=== PATIENT | male | born 1985 | race Caucasian/White ===

== ENCOUNTER 2022-01-05 12:40 | Outpatient (REF) | payer OTHER, SELFPAY ==
[2022-01-05 13:39] LABS: MANUAL DIFF FLAG NO
[2022-01-05 13:53] LABS: Basophils Percent Auto 0.3 % (0-2); Eosinophils Absolute Auto 0.2 X10*3/uL (0.0-0.4); Eosinophils Percent Auto 2.1 % (0-4); Hematocrit 42.9 % (42.0-52.0); Hemoglobin 14.6 g/dl (14.0-18.0); Imm Gran Abs Auto 0.03 X10*3/uL (0.00-0.03); Imm Gran Pct Auto 0.3 % (0.0-0.4); Lymphocytes Percent Auto 10.9 % (20-40); Mean Corpuscular Hemoglobin 28.9 pg (27.0-33.0); Mean Corpuscular Volume 84.8 fL (80.0-98.0); Mean Platelet Volume 9.3 fL (9.4-12.4); Monocytes Absolute Auto 0.4 X10*3/uL (0.1-1.2); Monocytes Percent Auto 4.2 % (2-11); Neutrophils Absolute Auto 7.2 x10*3/uL (2.0-8.3); Neutrophils Percent Auto 82.2 % (45-73); Platelet Count 392 X10*3/uL (160-400); Red Blood Count 5.06 X10*6/uL (4.60-5.80); Red Cell Distribution Width 12.6 % (11.0-16.0); White Blood Count 8.8 X10*3/uL (4.8-10.8)
[2022-01-05 14:11] LABS: Alanine Aminotransferase 14 U/L (0-40); Albumin Level 3.6 g/dL (3.5-5.0); Alkaline Phosphatase 74 U/L (39-117); Anion Gap 12 (12-20); Aspartate Amino Transferase 13 U/L (5-37); Bilirubin Total 0.6 mg/dL (0.0-1.0); Blood Urea Nitrogen 11 mg/dL (9-16); C Reactive Protein 1.42 mg/dL (< or = 0.50); Calcium 9.1 mg/dL (8.4-10.2); Carbon Dioxide 24 mmol/L (22-29); Chloride 107 mmol/L (96-108); Estimated Glomerular Filt Rate > 60; Glucose Random 99 mg/dL (60-115); Potassium 3.9 mmol/L (3.3-5.1); Sodium 139 mmol/L (135-145); Total Protein 6.7 g/dL (6.5-8.0)
[2022-01-05 14:33] LABS: TSH reflex Free T4 3.89 uIU/mL (0.32-4.0); Vitamin D 25-OH Total 15.9 ng/mL (>30)
[2022-01-05 14:35] LABS: Erythrocyte Sedimentation Rate 20 MM/HR (0-15)
[2022-01-05 14:58] LABS: Ferritin 57 ng/mL (20-250)
[2022-01-05 15:02] LABS: Folate 13.7 ng/mL (> or = 4.0); Vitamin B12 361 pg/mL (200-900)
[2022-01-07 22:01] LABS: TS Negative Control Passed; TS Panel A 1; TS Panel B 0; TS Positive Control Passed; TSpotTB Negative (Negative)
[2022-01-09 17:31] LABS: Vitamin C 0.7 mg/dL (0.2-2.1)
== END 2022-01-05 12:41 | disposition home or self-care (01) ==
LOC: HO.LAB 12:40
PROVIDERS: PCP Nurse Practitioner Family; Visit Provider Internal Medicine Gastroenterology
DX: Z11.1 Encounter for screening for respiratory tuberculosis (principal); K50.90 Crohn's disease, unspecified, without complications; K75.81 Nonalcoholic steatohepatitis (NASH)
CPT/HCPCS: 36415; 80053; 82180; 82306; 82607; 82728; 82746; 84443; 85025; 85652; 86140; 86481

== ENCOUNTER 2022-01-23 14:02 | Outpatient (REF) | payer OTHER, SELFPAY ==
--- NOTE | ~2022-01-23 | CT_ITS ---
EXAMINATION: CT ENTEROGRAPHY ABDOMEN AND PELVIS WITH CONTRAST CLINICAL INFORMATION: Periumbilical pain COMPARISON: None TECHNIQUE: Study performed with oral VoLumen (1350 mL) and 480 mL of water to distend the abdomen. The patient was injected with 85 mL Omnipaque 350 intravenous contrast which was administered without adverse effect. Coronal and sagittal reformatted images were obtained at the technologist's workstation. This CT examination was performed using dose optimization techniques as appropriate, variously including the following: *Automated exposure control *Adjustment of mA and/or kV according to patient size (this includes techniques or standardized protocols for targeted exams where dose is matched to indication/reason for exam; i.e. extremities or head) *Use of iterative reconstruction technique DLP: 373 mGy-cm FINDINGS: GASTROINTESTINAL FINDINGS: Stomach: Well-distended and normal in appearance. Small and large intestine: There are postsurgical changes following right colectomy. There are abnormal thick walled loops of distal small bowel just proximal to the enterocolic anastomosis in the right abdomen. This demonstrates increased mucosal enhancement. There is adjacent prominence of the vasa recta and enlarged mesenteric lymph nodes. Largest lymph nodes measure 1.5 to 1.8 cm. There is question of second area of more proximal small bowel involvement versus changes due to underdistention for example axial image 66 series 7. Small left bowel is otherwise unremarkable. The rectum is unremarkable. No abdominal abscess or fistulous tract demonstrated. There is a supraumbilical or periumbilical hernia containing fat. ABDOMINAL AND PELVIC CT FINDINGS: Liver, gallbladder, biliary tract: Unremarkable Pancreas: Unremarkable Spleen: Slightly prominent measuring 14 cm in AP dimension. Adrenal glands and kidneys: Normal adrenal glands. Slight anterior orientation of the right renal pelvis. The kidneys are otherwise normal. Ureters and bladder: Bladder not optimally distended. Normal prostate gland. Lymphovascular structures: Enlarged small bowel mesentery lymph nodes. Bones: Mild degenerative changes of the spine. Question mild increased sclerosis along the iliac side of the sacroiliac joints. Lung bases: Unremarkable CT/CT enterography IMPRESSION: Postsurgical changes following right colectomy. Abnormal loop of small bowel with wall thickening and enhancement proximal to the enterocolic anastomosis. This demonstrates prominent vasa recta and enlarged small bowel mesentery lymph nodes. Appearance is suggestive of active inflammatory bowel disease. Comparison with old outside imaging to see if mesenteric lymph node enlargement is new or increased is recommended. Question of a second area of involvement of the more proximal small bowel versus changes due to underdistention.
[2022-01-23] MEDS: iohexoL 350 MG/ML 100 ML INFUS..BTL IV (15:43)
[2022-01-23] MEDS: Sorbitol/Mannit/Xanth Imaging 500 ML LIQUID 1500 ML PO (15:45)
== END 2022-01-23 14:03 | disposition home or self-care (01) ==
LOC: HO.US 14:02
PROVIDERS: Visit Provider Internal Medicine Gastroenterology
DX: K50.90 Crohn's disease, unspecified, without complications (principal); R10.33 Periumbilical pain; Z90.49 Acquired absence of other specified parts of digestive tract
CPT/HCPCS: 74177; Q9967

== ENCOUNTER 2022-02-22 07:29 | Outpatient (REF) | payer OTHER, SELFPAY | END 2022-02-22 07:30 | disposition home or self-care (01) | LOC: HO.MDS 07:29 | PROVIDERS: PCP Nurse Practitioner Family; Visit Provider Internal Medicine Gastroenterology | DX: K50.90 Crohn's disease, unspecified, without complications (principal) | CPT/HCPCS: 96365; J3380 ==

== ENCOUNTER 2022-03-09 07:41 | Outpatient (REF) | payer OTHER, SELFPAY | END 2022-03-09 07:42 | disposition home or self-care (01) | LOC: HO.MDS 07:41 | PROVIDERS: PCP Nurse Practitioner Family; Visit Provider Internal Medicine Gastroenterology | DX: K50.90 Crohn's disease, unspecified, without complications (principal) | CPT/HCPCS: 96365; J3380 ==

== ENCOUNTER 2022-04-05 07:39 | Outpatient (REF) | payer OTHER, SELFPAY | END 2022-04-05 07:40 | disposition home or self-care (01) | LOC: HO.MDS 07:39 | PROVIDERS: PCP Nurse Practitioner Family; Visit Provider Internal Medicine Gastroenterology | DX: K50.90 Crohn's disease, unspecified, without complications (principal) | CPT/HCPCS: 96365; J3380 ==

== ENCOUNTER 2022-05-31 13:29 | Outpatient (REF) | payer OTHER, SELFPAY | END 2022-05-31 13:30 | disposition home or self-care (01) | LOC: HO.MDS 13:29 | PROVIDERS: PCP Nurse Practitioner Family; Visit Provider Internal Medicine Gastroenterology | DX: K50.90 Crohn's disease, unspecified, without complications (principal) | CPT/HCPCS: 96365; J3380 ==

== ENCOUNTER 2022-07-27 07:35 | Outpatient (REF) | payer OTHER, SELFPAY | END 2022-07-27 07:36 | disposition home or self-care (01) | LOC: HO.MDS 07:35 | PROVIDERS: Visit Provider Internal Medicine Gastroenterology | DX: K50.90 Crohn's disease, unspecified, without complications (principal) | CPT/HCPCS: 96365; J3380 ==

== ENCOUNTER 2022-09-24 13:31 | Outpatient (REF) | payer OTHER, SELFPAY ==
[2022-09-24 13:47] LABS: MANUAL DIFF FLAG NO
[2022-09-24 15:01] LABS: Basophils Percent Auto 0.5 % (0-2); Eosinophils Absolute Auto 0.2 X10*3/uL (0.0-0.4); Hematocrit 41.4 % (42.0-52.0); Hemoglobin 14.3 g/dl (14.0-18.0); Imm Gran Abs Auto 0.04 X10*3/uL (0.00-0.03); Imm Gran Pct Auto 0.5 % (0.0-0.4); Lymphocytes Absolute Auto 1.1 X10*3/uL (1.2-4.9); Lymphocytes Percent Auto 12.7 % (20-40); Mean Corpuscular HGB Conc 34.5 g/dl (31.0-36.0); Mean Corpuscular Hemoglobin 29.7 pg (27.0-33.0); Mean Corpuscular Volume 85.9 fL (80.0-98.0); Mean Platelet Volume 10.2 fL (9.4-12.4); Monocytes Absolute Auto 0.4 X10*3/uL (0.1-1.2); Monocytes Percent Auto 4.6 % (2-11); Neutrophils Absolute Auto 6.7 x10*3/uL (2.0-8.3); Neutrophils Percent Auto 79.7 % (45-73); Platelet Count 363 X10*3/uL (160-400); Red Blood Count 4.82 X10*6/uL (4.60-5.80); Red Cell Distribution Width 13.1 % (11.0-16.0); White Blood Count 8.5 X10*3/uL (4.8-10.8)
[2022-09-24 15:49] LABS: Erythrocyte Sedimentation Rate 14 MM/HR (0-15)
[2022-09-24 16:12] LABS: Alanine Aminotransferase 14 U/L (0-40); Albumin Level 3.5 g/dL (3.5-5.0); Alkaline Phosphatase 75 U/L (39-117); Anion Gap 10 (12-20); Aspartate Amino Transferase 14 U/L (5-37); Bilirubin Total 0.6 mg/dL (0.0-1.0); Blood Urea Nitrogen 8 mg/dL (9-16); C Reactive Protein 0.79 mg/dL (< or = 0.50); Calcium 8.8 mg/dL (8.4-10.2); Carbon Dioxide 27 mmol/L (22-29); Chloride 104 mmol/L (96-108); Estimated Glomerular Filt Rate > 60; Ferritin 43 ng/mL (20-250); Glucose Random 78 mg/dL (60-115); Iron 86 mcg/dL (45-160); Percent Iron Saturation 31 % (15-50); Potassium 4.1 mmol/L (3.3-5.1); Sodium 137 mmol/L (135-145); Total Iron Binding Capacity 277 mcg/dL (228-428); Total Protein 6.4 g/dL (6.5-8.0); Unsaturated Iron Binding 191 ug/dL
[2022-09-24 16:25] LABS: Folate 13.2 ng/mL (> or = 4.0); Vitamin B12 368 pg/mL (200-900)
== END 2022-09-24 13:32 | disposition home or self-care (01) ==
LOC: HO.LAB 13:31
PROVIDERS: Visit Provider Internal Medicine Gastroenterology
DX: K50.90 Crohn's disease, unspecified, without complications (principal); K42.9 Umbilical hernia without obstruction or gangrene; K75.81 Nonalcoholic steatohepatitis (NASH); K52.9 Noninfective gastroenteritis and colitis, unspecified
CPT/HCPCS: 36415; 80053; 80280; 82542; 82607; 82728; 82746; 83540; 85025; 85652; 86140

== ENCOUNTER 2022-09-28 07:34 | Outpatient (REF) | payer OTHER, SELFPAY | END 2022-09-28 07:35 | disposition home or self-care (01) | LOC: HO.MDS 07:34 | PROVIDERS: Visit Provider Internal Medicine Gastroenterology | DX: K50.90 Crohn's disease, unspecified, without complications (principal) | CPT/HCPCS: 96365; J3380 ==

== ENCOUNTER → 2022-11-02 09:58 | Outpatient (BNVA) | payer OTHER, SELFPAY | PROVIDERS: PCP Nurse Practitioner Family; Visit Provider Surgery | DX: Z13.89 Encounter for screening for other disorder (principal) ==

== ENCOUNTER 2022-11-09 07:28 | Outpatient (REF) | payer OTHER, SELFPAY | END 2022-11-09 07:29 | disposition home or self-care (01) | LOC: HO.MDS 07:28 | PROVIDERS: Visit Provider Internal Medicine Gastroenterology | DX: K50.90 Crohn's disease, unspecified, without complications (principal) | CPT/HCPCS: 96365; J3380 ==

== ENCOUNTER → 2022-11-19 11:04 | Outpatient (BNVA) | payer SELFPAY | PROVIDERS: PCP Physician Assistant; Visit Provider Physician Assistant Medical | DX: Z02.79 Encounter for issue of other medical certificate (principal) ==

== ENCOUNTER 2022-11-21 05:55 | Day surgery (SDC) | payer OTHER, SELFPAY ==
[2022-11-15 09:17] VITALS: BMI 25.4
--- NOTE | 2022-11-20 08:32 | HO.ANESPROP2 ---
Documented by User: Pushpa Hernandez NP 11/20/22 08:33 HPI - Anesthesia Eval Consult details Narrative: 37yo M for Hernia Repair Incisional,with poss mesh PMFSH Active Problems Active Problems: All Active Problems (Updated 11/02/22 @ 10:26 by Graham Kapoor MD) Cellulitis (Acute) Umbilical hernia (Acute) Incisional hernia, incarcerated (Acute) Crohn's disease (Acute) Past Medical History Medical History (Updated 11/02/22 @ 10:26 by Graham Kapoor MD) Crohn's disease Family History Family History Father Diabetes Surgical History Surgical History (Updated 11/15/22 @ 09:01 by Shira Fernandez RN) History of intestinal surgery History of surgery on wrist Hx of colonoscopy Social History Social History Alcohol intake: current Alcohol intake frequency: holidays/special occasions only Patient Tobacco Use Status: Never used Tobacco Use of substances other than those prescribed or required for medical reasons: No Advance Directives: No Advance Directives Information Provided: Yes Meds Allergies Allergy/AdvReac Type Severity Reaction Status Date / Time No Known Allergies Allergy Verified 11/02/22 10:04 Home Medications Medication Instructions Recorded Confirmed Last Taken Type vedolizumab 300 mg intravenous 300 mg IV Q6W 09/24/22 11/21/22 Unknown History solution (Entyvio) Exam Exam Date and Time: November 20, 2022 0832 Height,Weight and Vital Signs: Height 5 ft 8 in Weight 75.75 kg Pertinent Lab Results Pertinent Lab Results: Laboratory Tests 09/24/22 09/24/22 13:18 13:18 WBC 8.5 Hgb 14.3 Hct 41.4 L Plt Count 363 Sodium 137 Potassium 4.1 Chloride 104 Carbon Dioxide 27 BUN 8 L Creatinine 0.95 Assessment and Plan Assessment Anesthesia Assessment: Chart Reviewed Documented by User: Jeanette Bauer MD 11/21/22 07:29 [facility] Past Medical History Medical History (Updated 11/02/22 @ 10:26 by Graham Kapoor MD) Crohn's disease Family History Family History Father Diabetes Family history of problems with anesthesia: No Surgical History Surgical History (Updated 11/15/22 @ 09:01 by Shira Fernandez RN) History of intestinal surgery History of surgery on wrist Hx of colonoscopy History of Problems with Anesthesia: No Social History Social History Alcohol intake: current Alcohol intake frequency: holidays/special occasions only Patient Tobacco Use Status: Never used Tobacco Use of substances other than those prescribed or required for medical reasons: No Advance Directives: No Advance Directives Information Provided: Yes Meds Allergies Allergy/AdvReac Type Severity Reaction Status Date / Time No Known Allergies Allergy Verified 11/02/22 10:04 Home Medications Medication Instructions Recorded Confirmed Last Taken Type vedolizumab 300 mg intravenous 300 mg IV Q6W 09/24/22 11/21/22 Unknown History solution (Entyvio) Exam Airway Mallampati Class: II TM Dist: >3cm Heart: rrr Lungs: cta Assessment and Plan Assessment Anesthesia Assessment: Anesthesia Plan Discussed and Chart Reviewed Final Anesthetic Review Family History of Problems with Anesthesia: No History of Problems with Anesthesia: No NPO: Yes ASA Class: III Final Preanesthetic Review: No Changes in Pt Med Stat, Meds/Allgs Chart Reviewed, Consent Obtained/Reviewed and Anes Risks/Benef Reviewed Patient Risk: Intermediate Procedure Risk: Intermediate Anesthetic Plan Anesthetic Plan: GA and Agree w/ Assess. and Plan Disposition: Standard PACU
[2022-11-21 06:10] VITALS: BMI 25.0
[2022-11-21 06:13] VITALS: BP 110/76; PULSE 82; RESP 18; TEMP 36.3; O2SAT 95; BMI 25.0
[2022-11-21] MEDS: Lactated Ringers 1,000 ML 100 ML IVCONT (06:30)
--- NOTE | 2022-11-21 07:40 | MHC.SHP ---
Pre-Procedural Eval Section A Date of Service: 11/21/22 The patient is an INPATIENT: No Changes since office visit: Yes Patient answered all questions; No Cold of Flu in the past 2 weeks, No New Medical Problems and No Changes in Medication The History & Physical has been completed within 30 days and I have reviewed it.: Yes Section B Chief Complaint: Incisional hernia with obstruction, Allergies: Allergies Allergy/AdvReac Type Severity Reaction Status Date / Time No Known Allergies Allergy Verified 11/02/22 10:04 Plan Diagnosis/Plan: Unchanged I have reviewed the history and physical and performed a pertinent physical examination on my patient. No changes have occurred unless specified. Time Spent With Patient Time: Total time managing care of this patient today ____ minutes.
--- NOTE | 2022-11-21 08:09 | P.OP_ITS ---
Operative Note Operative Note Date of Service: 11/21/22 Narrative: Preoperative diagnosis: incisional hernia ( 3 cm, incarcerated) Postoperative diagnosis: same Procedure: repair of incisional hernia Surgeon: Graham Kapoor MD Broadcast Operations Engineer: Latosha Romeo PA-C Anesthesia: general LMA Indications for procedure: 37-year-old male patient with a previous history of Crohn's disease status post bowel resection through a periumbilical incision. Patient noted a lump just above the umbilicus over the previous incision which has gradually increased in size and is causing occasional discomfort. CT abdomen pelvis indicates a 3 cm incisional hernia at this location. Operative findings: Incisional hernia repaired with a 4.6 cm Ventralex mesh Specimen: none Estimated blood loss: less than 1 mL Complications: none Procedure details: patient was brought to the OR placed in a supine position. After administering general anesthesia the patient's abdomen was prepped with ChloraPrep and draped in a sterile fashion. A surgical time-out was called the consent confirmed. Patient received preoperative antibiotics and Venodyne boots were in place. Local anesthesia consisting of 0.5% Sensorcaine with epinephrine was then infiltrated in the midline directly over the hernia. Incision was then created with a scalpel carried out through subcutaneous tissue down to the hernia sac. The hernia sac was then dissected circumferentially down to the fascial defect. Fascial defect was opened slightly to allow return of the incarcerated contents into the preperitoneal space. An open Ray-Susie was then placed into the preperitoneal space to further define the preperitoneal space. Further dissection was performed using electrocautery. A small Ventralex mesh was then obtained. This was then deployed into the preperitoneal space and secured to the fascia using 1 Tycron sutures at the margins and the fascia was closed over the mesh using 1 Tycron sutures. Before the fascia was completely closed 5 mL of Zenrelef was infiltrated below the fascia. Fascia was then compl etely closed. Wounds were irrigated with saline solution and suctioned dry. Subcutaneous tissue and dermis were then reapproximated using interrupted 3-0 Polysorb sutures. Skin was closed using a running subcuticular 4-0 Polysorb suture. Steri-Strips, 2 x 2 gauze and Tegaderm then applied. The patient tolerated the procedure well. Sponge, instrument, and needle counts reported as correct. The patient was transferred to PACU in stable condition.
[2022-11-21 08:36] VITALS: BP 112/73; PULSE 80; RESP 16; TEMP 37.1; O2SAT 100
[2022-11-21 08:41] VITALS: BP 107/69; PULSE 77; RESP 16; O2SAT 96
[2022-11-21 08:46] VITALS: BP 105/64; PULSE 85; RESP 16; O2SAT 96
[2022-11-21 08:51] VITALS: BP 106/65; PULSE 86; RESP 16; TEMP 37; O2SAT 95
[2022-11-21 09:06] VITALS: BP 108/70; PULSE 90; RESP 16; O2SAT 96
--- NOTE | 2022-11-21 09:53 | PC.NURSE ---
PATIENT PALE WITH SOME NAUSEA. PATIENT GIVEN COOL CLOTH, MUFFIN AND GINERALE. PT STATED FEELING BETTER AFTER APPROX [address] WALLACE RE-ASSESSED WITH NO NEW ORDERS AT THIS TIME. MESSAGE TO DR. GONSALEZ REQUESTING A PRESCRIPTION FOR AN ANTIEMETIC.
== END 2022-11-21 10:00 ==
LOC: HO.SSS 05:56
PROVIDERS: PCP Physician Assistant; Visit Provider Surgery
PROC: (CPT 49594; principal; 2022-11-21 07:30)
DX: K43.0 Incisional hernia with obstruction, without gangrene (principal); K50.90 Crohn's disease, unspecified, without complications; Z90.49 Acquired absence of other specified parts of digestive tract; Z79.899 Other long term (current) drug therapy
CPT/HCPCS: 49594; C1781; C9088; J0131; J0690; J1100; J1170; J2370; J2405; J2795; J3010

== ENCOUNTER → 2022-12-06 14:40 | Outpatient (BNVA) | payer OTHER, SELFPAY | PROVIDERS: PCP Physician Assistant; Visit Provider Surgery | DX: Z13.89 Encounter for screening for other disorder (principal) ==

== ENCOUNTER 2022-12-21 07:33 | Outpatient (REF) | payer OTHER, SELFPAY | END 2022-12-21 07:34 | disposition home or self-care (01) | LOC: HO.MDS 07:33 | PROVIDERS: Visit Provider Internal Medicine Gastroenterology | DX: K50.90 Crohn's disease, unspecified, without complications (principal) | CPT/HCPCS: 96365; J3380 ==

== ENCOUNTER → 2023-01-03 10:12 | Outpatient (BNVA) | payer OTHER, SELFPAY | PROVIDERS: PCP Physician Assistant; Visit Provider Surgery | DX: Z13.89 Encounter for screening for other disorder (principal) ==

== ENCOUNTER 2023-01-14 11:15 | Outpatient (REF) | payer OTHER, SELFPAY ==
[2023-01-14 11:56] LABS: MANUAL DIFF FLAG NO
[2023-01-14 12:14] LABS: Basophils Percent Auto 0.4 % (0-2); Eosinophils Absolute Auto 0.2 X10*3/uL (0.0-0.4); Eosinophils Percent Auto 2.9 % (0-4); Hemoglobin 15.3 g/dl (14.0-18.0); Imm Gran Abs Auto 0.02 X10*3/uL (0.00-0.03); Imm Gran Pct Auto 0.3 % (0.0-0.4); Lymphocytes Absolute Auto 1.2 X10*3/uL (1.2-4.9); Lymphocytes Percent Auto 14.5 % (20-40); Mean Corpuscular Hemoglobin 28.3 pg (27.0-33.0); Mean Corpuscular Volume 83.2 fL (80.0-98.0); Mean Platelet Volume 9.5 fL (9.4-12.4); Monocytes Absolute Auto 0.4 X10*3/uL (0.1-1.2); Monocytes Percent Auto 4.4 % (2-11); Neutrophils Absolute Auto 6.2 x10*3/uL (2.0-8.3); Neutrophils Percent Auto 77.5 % (45-73); Platelet Count 405 X10*3/uL (160-400); Red Blood Count 5.41 X10*6/uL (4.60-5.80)
[2023-01-14 13:06] LABS: Alanine Aminotransferase 22 U/L (0-40); Albumin Level 3.9 g/dL (3.5-5.0); Alkaline Phosphatase 77 U/L (39-117); Anion Gap 13 (12-20); Aspartate Amino Transferase 17 U/L (5-37); Bilirubin Total 0.7 mg/dL (0.0-1.0); Blood Urea Nitrogen 9 mg/dL (9-16); Calcium 9.7 mg/dL (8.4-10.2); Carbon Dioxide 30 mmol/L (22-29); Chloride 102 mmol/L (96-108); Estimated Glomerular Filt Rate > 60; Glucose Random 89 mg/dL (60-115); Potassium 4.6 mmol/L (3.3-5.1); Sodium 140 mmol/L (135-145); Total Protein 7.2 g/dL (6.5-8.0)
[2023-01-14 13:23] LABS: Ferritin 37 ng/mL (20-250); Folate 11.6 ng/mL (> or = 4.0); Vitamin B12 357 pg/mL (200-900)
[2023-01-17 11:39] LABS: TS Negative Control Passed; TS Panel A 0; TS Panel B 0; TS Positive Control Passed; TSpotTB Negative (Negative)
== END 2023-01-14 11:16 | disposition home or self-care (01) ==
LOC: HO.LAB 11:15
PROVIDERS: PCP Physician Assistant; Visit Provider Internal Medicine Gastroenterology
DX: K75.81 Nonalcoholic steatohepatitis (NASH) (principal); K50.90 Crohn's disease, unspecified, without complications
CPT/HCPCS: 36415; 80053; 82607; 82728; 82746; 85025; 86481

== ENCOUNTER 2023-02-04 07:33 | Outpatient (REF) | payer OTHER, SELFPAY | END 2023-02-04 07:34 | disposition home or self-care (01) | LOC: HO.MDS 07:33 | PROVIDERS: Visit Provider Internal Medicine Gastroenterology | DX: K50.90 Crohn's disease, unspecified, without complications (principal) | CPT/HCPCS: 96365; J3380 ==

== ENCOUNTER 2023-03-18 07:41 | Outpatient (REF) | payer OTHER, SELFPAY | END 2023-03-18 07:42 | disposition home or self-care (01) | LOC: HO.MDS 07:41 | PROVIDERS: Visit Provider Internal Medicine Gastroenterology | DX: K50.90 Crohn's disease, unspecified, without complications (principal) | CPT/HCPCS: 96365; J3380 ==

== ENCOUNTER 2023-05-07 07:40 | Outpatient (REF) | payer OTHER, SELFPAY | END 2023-05-07 07:41 | disposition home or self-care (01) | LOC: HO.MDS 07:40 | PROVIDERS: Visit Provider Internal Medicine Gastroenterology | DX: K50.90 Crohn's disease, unspecified, without complications (principal) | CPT/HCPCS: 96365; J3380 ==

== ENCOUNTER 2023-06-18 07:41 | Outpatient (REF) | payer OTHER, SELFPAY | END 2023-06-18 07:42 | disposition home or self-care (01) | LOC: HO.MDS 07:41 | PROVIDERS: Visit Provider Internal Medicine Gastroenterology | DX: K50.90 Crohn's disease, unspecified, without complications (principal) | CPT/HCPCS: 96365; J3380 ==

== ENCOUNTER 2023-07-30 07:43 | Outpatient (REF) | payer OTHER, SELFPAY | END 2023-07-30 07:44 | disposition home or self-care (01) | LOC: HO.MDS 07:43 | PROVIDERS: Visit Provider Internal Medicine Gastroenterology | DX: K50.90 Crohn's disease, unspecified, without complications (principal) | CPT/HCPCS: 96365; J3380 ==

== ENCOUNTER 2023-09-10 07:28 | Outpatient (REF) | payer OTHER, SELFPAY | END 2023-09-10 07:29 | disposition home or self-care (01) | LOC: HO.MDS 07:28 | PROVIDERS: Visit Provider Internal Medicine Gastroenterology | DX: K50.90 Crohn's disease, unspecified, without complications (principal) | CPT/HCPCS: 96365; J3380 ==

== ENCOUNTER 2023-10-24 07:43 | Outpatient (REF) | payer OTHER, SELFPAY | END 2023-10-24 07:44 | disposition home or self-care (01) | LOC: HO.MDS 07:43 | PROVIDERS: Visit Provider Internal Medicine Gastroenterology | DX: K50.90 Crohn's disease, unspecified, without complications (principal) | CPT/HCPCS: 96365; J3380 ==

== ENCOUNTER 2023-12-05 07:34 | Outpatient (REF) | payer OTHER, SELFPAY | END 2023-12-05 07:35 | disposition home or self-care (01) | LOC: HO.MDS 07:34 | PROVIDERS: Visit Provider Internal Medicine Gastroenterology | DX: K50.90 Crohn's disease, unspecified, without complications (principal) | CPT/HCPCS: 96365; J3380 ==

== ENCOUNTER 2023-12-23 09:25 | Outpatient (AMB) | payer OTHER, SELFPAY ==
--- NOTE | 2023-12-23 09:29 | A.OFFVIS_ITS ---
Intake Vital Signs 12/23/23 09:31 Height 5 ft 8 in Weight 176 lb 5.917 oz BMI 26.8 BP 111/79 Blood Pressure Location Lt brachial Position Sitting Pulse 71 Intake Visit Reasons: 8 month fu Intake Note: Joselito presents in the office as a 8 month follow up. CC: He states that he is not having any concerns today! 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 VITAL SIGNS:see workflow HEENT: Nonicteric sclerae, PERRLA, EOMI. Oropharynx clear. Moist mucous membranes. Conjunctivae appear well perfused. No thyroid mass. CHEST: Chest wall is nontender. HEART: Regular rate and rhythm without murmurs. LUNGS: Clear to auscultation bilaterally. ABDOMEN: Soft, positive bowel sounds, nontender, no organomegaly.no flank tenderness--small umbilical hernia SKIN: dry skin hands, small cut on finger NEUROLOGIC: Cranial nerves II-XII intact without motor/sensory deficit. A/P: 1/ Crohns, s/p bowel resection with acti ve inflammation on CTe, now on entyvio with breakthru sx at 8 weeks or so so was changed to q 6 week dosing with better symptom control but still has breakthru at 4-5 weeks now PLAN: 1/ Cont with entyvio but change to q 4 w eeks and get entyvio level before next dose 2/ check labs incl TB spot 3/ colonoscopy later this year [facility] Medical History Incisional hernia, incarcerated Crohn's disease Surgical History History of incisional hernia repair (11/21/22) Hx of colonoscopy History of surgery on wrist History of intestinal surgery Family History Father Diabetes Social History Alcohol intake: current Alcohol intake frequency: holidays/special occasions only Patient Tobacco Use Status: Never used Tobacco Physical Exam Vital Signs: Last Vital Signs Pulse 71 12/23/23 09:31 BP 111/79 12/23/23 09:31 BMI result Body Mass Index 26.8 Assessment & Plan Assessment & Plan (1) Crohn's disease: Code(s): K50.90 - Crohn's disease, unspecified, without complications Plan: A/P: 1/ Crohns, s/p bowel resection with active inflammation on CTe, now on entyvio with breakthru sx at 8 weeks or so so was changed to q 6 week dosing with better symptom control but still has breakthru at 4-5 weeks now PLAN: 1/ Cont with entyvio but change to q 4 weeks and get entyvio level before next dose 2/ check labs incl TB spot 3/ colonoscopy later this year Orders: Orders Complete Blood Count Auto Diff Today K50.90 - Crohn's disease, unspecified, without complications Comprehensive Met. Panel Today K50.90 - Crohn's disease, unspecified, without complications, K75.81 - Nonalcoholic steatohepatitis (GROSS) C Reactive Protein Today K50.90 - Crohn's disease, unspecified, without complications Erythrocyte Sedimentation Rate Today K50.90 - Crohn's disease, unspecified, without complications Vedolizumab Qn with Ab Today K50.90 - Crohn's disease, unspecified, without complications T Spot TB Today K50.90 - Crohn's disease, unspecified, without complications Coding Level of Care Code Est Pt Level 3 (37518) Diagnoses Crohn's disease K50.90
[2023-12-23 09:31] VITALS: BP 111/79; PULSE 71; BMI 26.8
== END 2023-12-23 09:56 | disposition home or self-care (01) ==
PROVIDERS: PCP Physician Assistant; Visit Provider Internal Medicine Gastroenterology
DX: K50.90 Crohn's disease, unspecified, without complications (principal)
CPT/HCPCS: 99213

== ENCOUNTER → 2023-12-23 09:25 | Outpatient (BNVA) | payer OTHER, SELFPAY | PROVIDERS: PCP Physician Assistant; Visit Provider Internal Medicine Gastroenterology ==

== ENCOUNTER 2024-01-06 10:59 | Outpatient (REF) | payer OTHER, SELFPAY ==
[2024-01-06 11:18] VITALS: BP 110/68; PULSE 89; RESP 18; TEMP 36.6; O2SAT 98; BMI 26.8
[2024-01-06] MEDS: Vedolizumab 300 MG in 0.9 % Sodium Chloride 250 ML 510 MG IV (12:10)
[2024-01-06 12:45] VITALS: BP 97/62; PULSE 84; RESP 18; O2SAT 96
[2024-02-04 10:21] LABS: Vedolizumab Antibody <9.8
== END 2024-01-06 11:00 | disposition home or self-care (01) ==
LOC: HO.MDS 10:59
PROVIDERS: Visit Provider Internal Medicine Gastroenterology
DX: K50.90 Crohn's disease, unspecified, without complications (principal); Z79.899 Other long term (current) drug therapy
CPT/HCPCS: 36415; 80280; 83520; 96365; J3380

== ENCOUNTER 2024-07-31 09:17 | Outpatient (AMB) | payer OTHER, SELFPAY ==
--- NOTE | 2024-07-31 09:18 | MHC.OFFVIS ---
Vital Signs 07/31/24 09:19 Height 5 ft 8 in Weight 165 lb 5.547 oz BMI 25.1 BP 110/58 L Blood Pressure Location Lt brachial Position Sitting Pulse 78 Intake Visit Reasons: 4 month follow up r/s from 05/18 Intake Note: Joselito presents in the office as a 4 month follow up. CC: He is not having any concerns at this time! 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 VITAL SIGNS:see workflow HEENT: Nonicteric sclerae, PERRLA, EOMI. Oropharynx clear. Moist mucous membranes. Conjunctivae appear well perfused. No thyroid mass. CHEST: Chest wall is nontender. HEART: Regular rate and rhythm without murmurs. LUNGS: Clear to auscultation bilaterally. ABDOMEN: Soft, positive bowel sounds, nontender, no organomegaly.no flank tenderness--small umbilical hernia SKIN: dry skin hands, small cut on finger NEUROLOGIC: Cranial nerves II-XII intact without motor/sensory deficit. A/P: 1/ Crohns, s/p bowel resection with active inflammation on CTe, now on entyvio q4 weeks, with good results, in clinical remission PLAN: 1/ Cont with entyvio 2/ check labs 3/ colonoscopy with suprep 4/ advised to get flu shot, pneumonia vaccine and covid shots, will check hep A,B and C PFSH Medical History Incisional hernia, incarcerated Crohn's disease Surgical History History of incisional hernia repair (11/21/22) Hx of colonoscopy History of surgery on wrist History of intestinal surgery Family History Father Diabetes Social History Alcohol intake: current Alcohol intake frequency: holidays/special occasions only Patient Tobacco Use Status: Never used Tobacco Physical Exam Vital Signs: Last Vital Signs Pulse 78 07/31/24 09:19 BP 110/58 L 07/31/24 09:19 BMI result Body Mass Index 25.1 Assessment & Plan Assessment & Plan (1) Crohn's disease: Code(s): K50.90 - Crohn's disease, unspecified, without complications Category: Medical Plan: see above Orders: Orders Hepatitis A,B,C Profile Today K50.90 - Crohn's disease, unspecified, without complications Medications: New sodium,potassium,mag sulfates 17.5-3.13-1.6 gram (Suprep Bowel Prep Kit) DILUTE; drink 1/2 at 6-8 pm and half at 11 PM- 1AM 354 mL 0RF Coding Level of Care Code Est Pt Level 4 (96070) Diagnoses Crohn's disease K50.90
[2024-07-31 09:19] VITALS: BP 110/58; PULSE 78; BMI 25.1
== END 2024-07-31 09:58 | disposition home or self-care (01) ==
PROVIDERS: PCP Physician Assistant; Visit Provider Internal Medicine Gastroenterology
DX: K50.90 Crohn's disease, unspecified, without complications (principal)
CPT/HCPCS: 99214

== ENCOUNTER 2024-07-31 09:17 | Outpatient (REF) | payer OTHER, SELFPAY ==
[2024-07-31 09:59] LABS: MANUAL DIFF FLAG NO
[2024-07-31 11:05] LABS: Basophils Percent Auto 0.4 % (0-2); Eosinophils Absolute Auto 0.2 X10*3/uL (0.0-0.4); Eosinophils Percent Auto 2.4 % (0-4); Hematocrit 41.3 % (42.0-52.0); Hemoglobin 14.2 g/dl (14.0-18.0); Imm Gran Abs Auto 0.03 X10*3/uL (0.00-0.03); Imm Gran Pct Auto 0.4 % (0.0-0.4); Lymphocytes Absolute Auto 0.7 X10*3/uL (1.2-4.9); Lymphocytes Percent Auto 9.5 % (20-40); Mean Corpuscular HGB Conc 34.4 g/dl (31.0-36.0); Mean Corpuscular Hemoglobin 30.1 pg (27.0-33.0); Mean Corpuscular Volume 87.5 fL (80.0-98.0); Mean Platelet Volume 10.4 fL (9.4-12.4); Monocytes Absolute Auto 0.4 X10*3/uL (0.1-1.2); Monocytes Percent Auto 5.2 % (2-11); Neutrophils Absolute Auto 6.1 x10*3/uL (2.0-8.3); Neutrophils Percent Auto 82.1 % (45-73); Platelet Count 302 X10*3/uL (160-400); Red Blood Count 4.72 X10*6/uL (4.60-5.80); White Blood Count 7.4 X10*3/uL (4.8-10.8)
[2024-07-31 12:59] LABS: HBS Num1 67.07 mIU/mL (0-7.99); HBc Num1 0.17 S/CO (0.00-0.79); Hepatitis A Antibody IgM 0.19 Index (0-0.79); Hepatitis B Core Antibody Nonreactive (Nonreactive); Hepatitis B Surface Antigen Negative (Negative); ~HepC Num1 0.21 S/CO (0.00-0.79); ~Hepatitis A Antibody IgM Nonreactive (Nonreactive); ~Hepatitis B Surface Antibody REACTIVE (Nonreactive); ~Hepatitis C Antibody Nonreactive (Nonreactive)
[2024-07-31 13:08] LABS: Alanine Aminotransferase 17 U/L (0-40); Albumin Level 3.5 g/dL (3.5-5.0); Alkaline Phosphatase 69 U/L (39-117); Anion Gap 10 (12-20); Aspartate Amino Transferase 14 U/L (5-37); Bilirubin Total 0.6 mg/dL (0.0-1.0); Blood Urea Nitrogen 11 mg/dL (9-16); C Reactive Protein 1.53 mg/dL (< or = 0.50); Calcium 8.8 mg/dL (8.4-10.2); Carbon Dioxide 25 mmol/L (22-29); Chloride 108 mmol/L (96-108); Estimated Glomerular Filt Rate > 60; Glucose Random 74 mg/dL (60-115); Sodium 139 mmol/L (135-145); Total Protein 6.7 g/dL (6.5-8.0)
[2024-07-31 14:12] LABS: Erythrocyte Sedimentation Rate 14 MM/HR (0-15)
== END 2024-07-31 09:18 | disposition home or self-care (01) ==
LOC: HO.LAB 09:17
PROVIDERS: PCP Physician Assistant; Visit Provider Internal Medicine Gastroenterology
DX: K75.81 Nonalcoholic steatohepatitis (NASH) (principal); K50.90 Crohn's disease, unspecified, without complications
CPT/HCPCS: 36415; 80053; 85025; 85652; 86140; 86704; 86706; 86709; 86803; 87340

== ENCOUNTER 2024-08-03 13:00 | Outpatient (AMB) | payer OTHER, SELFPAY ==
--- NOTE | 2024-08-03 13:09 | AM.OFFVISNUR ---
Intake Visit Reasons: Prevnar 20, COVID, Flu Immunization Allergies No Known Allergies Allergy (Verified 07/31/24 09:20) Office Procedures Flu Questionnaire Does the patient have a severe egg allergy?: No Does the patient have severe life threatening allergies?: No Does the patient have a fever or illness today?: No Has the patient ever had Guillain-Gardena Syndrome?: No Has the patient ever had any past reaction to a flu shot?: No Assessment & Plan Assessment & Plan Orders: Orders Pneumococcal 20 Immunization Today Z23 - Encounter for immunization Influenza [id number] Immunization Today Z23 - Encounter for immunization Medications: New Fluarix Triv [id number] (PF) (flu vacc [id number] 6mos up(PF)) 0.5 mL IM ONCE 0.5 mL 0RF NS Z23 - Encounter for immunization pneumoc 20-luis conj-dip cr(PF) 0.5 mL IM ONCE 0.5 mL 0RF Z23 - Encounter for immunization
--- NOTE | 2024-08-03 13:12 | AM.OFFVISNUR ---
Intake Visit Reasons: Prevnar 20, COVID, Flu Immunization Allergies No Known Allergies Allergy (Verified 07/31/24 09:20) Nursing Note Patient presented for Prevnar 20 and Influenza immunizations. Patient declined COVID 19 vaccine at this time. I unfortunately had to dispose of COVID vaccine as it was opened. Office Procedures Flu Questionnaire Does the patient have a severe egg allergy?: No Does the patient have severe life threatening allergies?: No Does the patient have a fever or illness today?: No Has the patient ever had Guillain-[place] Syndrome?: No Has the patient ever had any past reaction to a flu shot?: No Assessment & Plan Assessment & Plan Orders: Orders Pneumococcal 20 Immunization Today Z23 - Encounter for immunization Influenza [id number] Immunization Today Z23 - Encounter for immunization
== END 2024-08-03 13:13 | disposition home or self-care (01) ==
PROVIDERS: PCP Physician Assistant; Visit Provider Internal Medicine Gastroenterology
DX: Z23 Encounter for immunization (principal)

== ENCOUNTER → 2024-08-03 13:00 | Outpatient (BNVA) | payer OTHER, SELFPAY | PROVIDERS: PCP Physician Assistant; Visit Provider Internal Medicine Gastroenterology | DX: Z23 Encounter for immunization (principal); Z28.21 Immunization not carried out because of patient refusal | CPT/HCPCS: 90471; 90472; 90656; 90677; 99211 ==

== ENCOUNTER → 2024-11-19 13:43 | Outpatient (BNVA) | payer SELFPAY | PROVIDERS: PCP Physician Assistant; Visit Provider Physician Assistant Medical | DX: Z02.79 Encounter for issue of other medical certificate (principal) ==